=== PATIENT | male | born 1970 | race Caucasian/White ===

== ENCOUNTER 2017-03-31 06:33 | Emergency (ER) | payer MEDICARE, MEDICAID ==
[~2017-03-31] VITALS: Ht 188 cm; Wt 82.6 kg
[~2017-03-31 06:33] MED LIST: ASPI-496 PO; CHOL10002 PO; COLE1TAB2 PO; DEXA0.5D PO; DOCU-30 PO; DULO20CA45 PO; FLUD0.1T PO; HYDR-3144 PO; HYDR-3240 PO; HYDR5TAB2 PO; LINE600T37 PO; LORA1TAB PO; MAGN400T26 PO; MEGE400O2 PO; METO10TA82 PO; MIRT45TA PO; MULT-26 PO; MYCO360T PO; OXYC10TA6 PO; PANT40TA3 PO; PRAV20TA PO; PRAV20TA2 PO; SULF1TAB23 PO; TACR1CAP4 PO; TACR5CAP4 PO; TADA5TAB2 PO; TAMS-11 PO; VALG450T PO; VANC1VIA3 PO
[2017-03-31] MEDS ORDERED: HYDROmorphone 2 MG/ML, 1ML ONE (07:16)
[2017-03-31] MEDS ORDERED: HYDROmorphone 1 MG/ML, 1ML IM ONE ×2 (07:30→10:00)
[2017-03-31] MEDS ORDERED: TERBUTALINE 1 MG/ML, 1ML SQ ONE (07:30)
[2017-03-31] MEDS ORDERED: LIDOCAINE 1%, 20ML ONE (08:10)
[2017-03-31] MEDS ORDERED: LIDOCAINE 1%, 20ML INFIL ONE (08:30)
[2017-03-31] MEDS ORDERED: SODIUM CHLORIDE 0.9% IV ONE ×2 (09:30→11:30)
[2017-03-31] MEDS ORDERED: PHENYLEPHRINE IV ONE ×2 (09:30→11:30)
[2017-03-31] MEDS ORDERED: HYDROmorphone 1 MG/ML, 1ML ONE (09:59)
[2017-03-31] MEDS ORDERED: PSEUDOEPHEDRINE 30 MG TABLET PO ONE (11:30)
[2017-03-31] MEDS ORDERED: PHENYLEPHRINE IC ONE (11:30)
[2017-03-31] MEDS ORDERED: SODIUM CHLORIDE 0.9% IC ONE (11:30)
[2017-03-31 11:42] LABS: BLOOD UREA NITROGEN 16 mg/dL (7-18)
[2017-03-31 13:30] VITALS: BP 160/88
== END 2017-03-31 13:36 | disposition home or self-care (01) ==
LOC: ED 08:59
DX: N48.33 Priapism, drug-induced (principal); N28.9 Disorder of kidney and ureter, unspecified; E78.00 Pure hypercholesterolemia, unspecified; E11.9 Type 2 diabetes mellitus without complications; I25.2 Old myocardial infarction; Z86.73 Personal history of transient ischemic attack (TIA), and cerebral infarction without residual deficits
CPT/HCPCS: 36415; 80048; 85025; 96372; 99284; J1170; J3105

== ENCOUNTER 2017-05-30 10:53 | Day surgery (SDC) | payer MEDICARE, MEDICAID ==
[~2017-05-30] VITALS: Ht 188 cm; Wt 83.1 kg
[2017-05-30 11:45] VITALS: BP 120/75
[2017-05-30] MEDS ORDERED: LIDOCAINE 1%, 2ML ONE (12:36)
[2017-05-30] MEDS ORDERED: MIDAZOLAM 1 MG/ML, 2ML ONE (12:50)
[2017-05-30] MEDS ORDERED: FENTANYL PF 100 MCG/2ML ONE (12:50)
[2017-05-30] MEDS ORDERED: PROPOFOL 10 MG/ML, 20ML ONE (13:00)
[2017-05-30] MEDS ORDERED: CEFAZOLIN 1,000 MG ONE (13:00)
[2017-05-30] MEDS ORDERED: ONDANSETRON 2MG/ML, 2ML ONE (13:00)
[2017-05-30] MEDS ORDERED: DEXAMETHASONE 4 MG/ML, 5ML ONE (13:00)
[2017-05-30] MEDS ORDERED: BUPIVACAINE/PF 0.5% ONE (13:01)
[2017-05-30] MEDS ORDERED: ACETAMINOPHEN 325 MG TABLET PO PRN (13:30)
[2017-05-30] MEDS ORDERED: PROMETHAZINE 25 MG/ML, 1ML IV PRN (13:30)
[2017-05-30] MEDS ORDERED: HYDROmorphone 1 MG/ML, 1ML IV PRN (13:30)
[2017-05-30] MEDS ORDERED: OXYcodone 5 MG/5 ML ORAL.SOL UDC PO PRN (13:30)
[2017-05-30] MEDS ORDERED: FENTANYL PF 100 MCG/2ML IV PRN (13:30)
== END 2017-05-30 17:20 ==
LOC: OUT 10:53
PROVIDERS: ATTEND Orthopaedic Surgery
DX: E11.621 Type 2 diabetes mellitus with foot ulcer (principal); E11.42 Type 2 diabetes mellitus with diabetic polyneuropathy; E11.51 Type 2 diabetes mellitus with diabetic peripheral angiopathy without gangrene; I25.10 Atherosclerotic heart disease of native coronary artery without angina pectoris; I25.2 Old myocardial infarction; K21.9 Gastro-esophageal reflux disease without esophagitis; Z86.39 Personal history of other endocrine, nutritional and metabolic disease; Z79.82 Long term (current) use of aspirin; Z88.6 Allergy status to analgesic agent
CPT/HCPCS: 28160; 88305; J0690; J1100; J2250; J2405; J2704; J3010; J3490

== ENCOUNTER 2018-02-12 21:06 | Emergency (ER) | payer MEDICARE, MEDICAID ==
[~2018-02-12] VITALS: Ht 188 cm; Wt 87.0 kg
[~2018-02-12 21:06] MED LIST changes: +DOCU-131 PO; -DOCU-30 PO; -HYDR-3144 PO; +HYDR-3245 PO
[2018-02-12] MEDS ORDERED: FENTANYL PF 100 MCG/2ML ONE (21:53)
[2018-02-12] MEDS ORDERED: LORazepam 1MG TABLET ONE (21:53)
[2018-02-12] MEDS ORDERED: ONDANSETRON ODT 4 MG ONE (21:54)
[2018-02-12] MEDS ORDERED: LORazepam 1MG TABLET PO ONE (22:00)
[2018-02-12] MEDS ORDERED: FENTANYL PF 100 MCG/2ML IV ONE (22:00)
[2018-02-12] MEDS ORDERED: ONDANSETRON ODT 4 MG PO ONE (22:00)
[2018-02-12] MEDS ORDERED: SODIUM CHLORIDE FLUSH 10ML SYR IVF ONE (22:00)
[2018-02-12] MEDS ORDERED: FLUD0.1T PO (22:19)
[2018-02-12] MEDS ORDERED: HYDR50TA13 PO (22:19)
[2018-02-12] MEDS ORDERED: [UNRECOGNIZED DRUG - OTHER] PO (22:19)
[2018-02-12] MEDS ORDERED: MYCO250C4 PO (22:19)
[2018-02-12] MEDS ORDERED: FENTANYL PF 100 MCG/2ML IM ONE (22:30)
[2018-02-12] MEDS ORDERED: METHYLNALTREXONE 12 MG/0.6 ML SQ ONE ×2 (22:54→23:00)
[2018-02-12 23:03] VITALS: BP 103/57
== END 2018-02-12 23:08 | disposition home or self-care (01) ==
LOC: ED 23:02
DX: K59.00 Constipation, unspecified (principal); E11.9 Type 2 diabetes mellitus without complications; Z86.73 Personal history of transient ischemic attack (TIA), and cerebral infarction without residual deficits
CPT/HCPCS: 74022; 93005; 96372; 99284; J3010; Q0162

== ENCOUNTER 2019-08-13 09:35 | Emergency (ER) | payer MEDICARE ==
[~2019-08-13] VITALS: Ht 188 cm; Wt 78.0 kg
[~2019-08-13 09:35] MED LIST changes: +ACID1TAB7 PO; +ASPI-515 PO; +DULO30CA2 PO; +HYDR50TA13 PO; -HYDR5TAB2 PO; +HYDR5TAB7 PO; +LINE600T2 PO; -LINE600T37 PO; +LISI2.5T PO; +MYCO250C4 PO; +PRED5TAB PO; +PROM25TA10 PO; +[UNRECOGNIZED DRUG - OTHER] PO; +iron
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
[2019-08-13] MEDS ORDERED: HYDROcodone/APAP 5/325 TABLET ONE (10:13)
[2019-08-13 10:24] VITALS: BP 131/73
[2019-08-13] MEDS ORDERED: HYDROcodone/APAP 5/325 TABLET PO ONE (10:30)
--- NOTE | 2019-08-13 11:14 | NUR ---
SPLINT AND SLING PLACED, DISCHARGE INSTRUCTIONS REVIEWED.
== END 2019-08-13 11:19 | disposition home or self-care (01) ==
LOC: ED 11:00
DX: S60.212A Contusion of left wrist, initial encounter (principal); S60.222A Contusion of left hand, initial encounter; E11.9 Type 2 diabetes mellitus without complications; Z86.73 Personal history of transient ischemic attack (TIA), and cerebral infarction without residual deficits; W07.XXXA Fall from chair, initial encounter; Y93.89 Activity, other specified; Y92.009 Unspecified place in unspecified non-institutional (private) residence as the place of occurrence of the external cause; Y99.8 Other external cause status
CPT/HCPCS: 29125; 99283

== ENCOUNTER 2019-09-15 17:48 | Emergency (ER) | payer MEDICARE ==
[~2019-09-15] VITALS: Ht 188 cm; Wt 77.3 kg
[~2019-09-15 17:48] MED LIST changes: +LINE600T12 PO; -LINE600T2 PO
[2019-09-15 17:53] VITALS: BP 131/75
[2019-09-15] MEDS ORDERED: LIDOCAINE-MPF 1%, 5ML ONE (18:50)
[2019-09-15] MEDS ORDERED: CEPHALEXIN 500 MG CAPSULE PO ONE (19:00)
[2019-09-15] MEDS ORDERED: BUPIVACAINE 0.25% INFIL ONE (19:00)
[2019-09-15] MEDS ORDERED: BUPIVACAINE/PF 0.5% ONE (19:00)
[2019-09-15] MEDS ORDERED: LIDOCAINE-MPF 1%, 5ML INFIL ONE (19:00)
[2019-09-15] MEDS ORDERED: CEPHALEXIN 500 MG CAPSULE ONE (19:01)
[2019-09-15] MEDS ORDERED: NEOSPORIN OINT. PKT 1 PACKET ONE (19:53)
--- NOTE | 2019-09-15 20:01 | NUR ---
SITE CLEANED, NEOSPORYN APPLIED & BULKY DRESSING APPLIED. TOLERATED WELL.
== END 2019-09-15 20:04 | disposition home or self-care (01) ==
LOC: ED 19:58
DX: L03.011 Cellulitis of right finger (principal); E11.9 Type 2 diabetes mellitus without complications; I25.2 Old myocardial infarction; Z86.73 Personal history of transient ischemic attack (TIA), and cerebral infarction without residual deficits; Z98.61 Coronary angioplasty status
CPT/HCPCS: 10060; 99283; J3490

== ENCOUNTER → 2020-05-04 | Outpatient (CLI) | payer MEDICARE, MEDICAID ==
[~2020-05-04] MED LIST changes: -HYDR50TA13 PO; +HYDR50TA99 PO; +HYDR5TAB13 PO; -HYDR5TAB7 PO; -MEGE400O2 PO; +MEGE400O6 PO; +REGADENOSON 0.4 MG/5 ML SYRINGE ONE; -TACR1CAP4 PO; +TACR1CAP5 PO; -TACR5CAP4 PO; +TACR5CAP5 PO
== END | disposition home or self-care (01) ==
LOC: CFH 07:27
PROVIDERS: ATTEND Internal Medicine Cardiovascular Disease
DX: I08.0 Rheumatic disorders of both mitral and aortic valves (principal); I25.10 Atherosclerotic heart disease of native coronary artery without angina pectoris; I31.3 Pericardial effusion (noninflammatory)
CPT/HCPCS: 78452; 93017; 93306; 93356; A9502; J2785

== ENCOUNTER 2021-06-14 19:40 | Emergency (ER) | payer MEDICARE, MEDICAID ==
[~2021-06-14] VITALS: Ht 188 cm; Wt 82.5 kg
[~2021-06-14 19:40] MED LIST changes: -ASPI-515 PO; +ASPI-963 PO; +HYDR-2214 PO; -HYDR-3240 PO; -HYDR-3245 PO; +HYDR1TAB53 PO; -REGADENOSON 0.4 MG/5 ML SYRINGE ONE; -VANC1VIA3 PO; +VANC1VIA36 PO
--- NOTE | 2021-06-14 19:51 | NUR ---
EKG IN TRIAGE
[2021-06-14 21:11] LABS: BASOPHILS % (AUTO) 1 % (0-1); EOSINOPHILS % (AUTO) 6 % (1-7); LYMPHOCYTES % (AUTO) 14 % (22-44); MEAN CORPUSCULAR HEMOGLOBIN 25.4 pg (27.5-34.5); MEAN CORPUSCULAR HGB CONC 32.2 g/dL (33.2-36.2); MONOCYTES % (AUTO) 11 % (2-9); NEUTROPHILS % (AUTO) 68 % (42-75); PLATELET COUNT 338 x10^3/uL (130-400); RED BLOOD COUNT 6.17 x10^6/uL (4.38-5.82); RED CELL DISTRIBUTION WIDTH 18.1 % (9.4-14.8)
[2021-06-14 21:19] LABS: ALBUMIN 3.2 g/dL (3.4-5.0); ANION GAP 6 mmol/L (5-15); CHLORIDE 108 mmol/L (98-107)
--- NOTE | 2021-06-14 21:19 | NUR ---
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
[2021-06-14 21:27] LABS: ALANINE AMINOTRANSFERASE 18 U/L (12-78); ALKALINE PHOSPHATASE 182 U/L (45-117); BILIRUBIN,TOTAL 0.7 mg/dL (0.2-1.0); TOTAL PROTEIN 7.6 g/dL (6.4-8.2); TROPONIN I < 0.015 ng/mL (0.000-0.045)
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
[2021-06-14 22:41] VITALS: BP 126/79
--- NOTE | 2021-06-15 00:25 | NUR ---
LAB AT BEDSIDE DRAWING BLOOD
[2021-06-15 00:51] LABS: TROPONIN I < 0.015 ng/mL (0.000-0.045)
== END 2021-06-15 01:50 | disposition home or self-care (01) ==
LOC: ED 21:39
DX: R07.89 Other chest pain (principal); M79.602 Pain in left arm; R94.31 Abnormal electrocardiogram [ECG] [EKG]; I25.2 Old myocardial infarction; E11.9 Type 2 diabetes mellitus without complications; E78.00 Pure hypercholesterolemia, unspecified; Z98.61 Coronary angioplasty status; Z86.73 Personal history of transient ischemic attack (TIA), and cerebral infarction without residual deficits
CPT/HCPCS: 36415; 71045; 80053; 84484; 85025; 93005; 99285